=== PATIENT | male | born 1960 | race Caucasian/White ===

== ENCOUNTER → 2020-11-21 | Outpatient (CLI) | payer OTHER | LOC: SJCVCIMAG 08:14 | PROVIDERS: ATTEND Internal Medicine | DX: I73.9 Peripheral vascular disease, unspecified (principal); E04.1 Nontoxic single thyroid nodule; M79.604 Pain in right leg; M79.605 Pain in left leg; R09.89 Other specified symptoms and signs involving the circulatory and respiratory systems; Z79.899 Other long term (current) drug therapy ==

== ENCOUNTER → 2020-11-25 | Outpatient (CLI) | payer OTHER ==
[~2020-11-25] VITALS: Ht 175.3 cm; Wt 75.7 kg
[~2020-11-25] MED LIST: CENTRUM SILVER1 EAC7 PO; CRESTOR40 MG PO; FISH OIL 1,0001 EAC9 PO; OMEPRAZOLE40 MG PO
--- NOTE | 2020-11-25 10:00 | CATHLAB ---
[facility] [place], [place] [address] INVASIVE PROCEDURE REPORT Name: KAYLEEN PRINCE Room #: REG GREGORY Griffiths.#: [id number] Admission: 11/25/20 Attend Phys: Jeromy Alvarado MD, Discharge: Date of : 62 Report #: [id number] THIS REPORT FOR: cc: Po Jaime MD, Jonathan MD Lundgren, Craig H. MD [facility] ~ APPROVED REPORT Study performed: 11/25/2020 07:43:45 Patient Details Patient Status: Out-Patient Room #: The patient is a 60 year-old male Event Personnel Jeromy Alvarado Machine Pecan Picker, Kasandra Hutson RTR Monitor, Basilia Veliz RTR, Cade Veloz Dexter RN cinder pit crane operator Performed Art Access - R femoral artery* Left Heart Cath w/or w/o Coronaries [id number] [facility] [id number] Initial Mod Sed Same Phys/QHP Gr [id number] Mod Sed Same Phys/QHP Ea [id number] Hemostasis w/ Mynx Procedure Narrative The patient was brought electively to the Cardiac Catheterization Laboratory and was prepped and draped in a sterile manner. The Right Groin^ was infiltrated with 1% Lidocaine subcutaneous anesthesia. A PINNACLE 6FR Sheath #[id number] sheath was inserted into the RFA^. Coronary angiography was performed using coronary diagnostic catheters. The right coronary system was accessed and visualized with a JR4 catheter. The left coronary system was accessed and visualized with a JL4 catheter. The left ventricle was accessed and visualized with a PIGTAIL catheter. Left ventriculogram was performed in 30 degree projection. Closure device was deployed with a Fr MYNXGRIP 6/7F #[id number]. The patient tolerated the procedure well and there were no complications associated with the procedure. There was no hematoma. Intraoperative Conscious Sedation Sedation start time: 8:02 Case end Time: 8:35 Fentanyl 50 mcg Versed [address] [facility] [place] [address] INVASIVE PROCEDURE REPORT Name: KAYLEEN PRINCE [facility]: [id number] Admission: 11/25/20 Attend Phys: Jeromy Alvarado, Discharge: Date of : 62 Report #: [id number] Fluoro Time: 2.60 minutes Dose: DAP 5313.90 cGycm2 657 mGy Contrast Type and Amount: Omnipaque 110 ml Coronary Angiography The patient's coronary anatomy is right dominant. Diagnostic Cath Left Main Normal left main LAD Normal left anterior descending Diagonal 1 Large, single, angiographically normal diagonal branch Circumflex Circumflex is comprised of a single bifurcating marginal branch, angiographically normal Right Coronary Dominant right coronary, angiographically normal R PDA Normal posterior descending RPLV Normal posterior lateral branch Hemodynamics The aortic pressure is 146/70 mmHg with a mean of 108 mmHg. The left ventricular pressure is 152/-7 mmHg with a mean of mmHg. The left ventricular end diastolic pressure is 34 mmHg. Conclusion 1. Normal global and regional left ventricular systolic function. Ejection fraction 65% 2. Normal left main 3. Normal coronary vasculature. Right coronary dominant circulation. <ELECTRONICALLY SIGNED> By: Jeromy Alvarado MD, FACC 11/25/20 1000 1000 1000 Jeromy Alvarado MD, FACC /INF
== END | disposition home or self-care (01) ==
LOC: CATH 06:31
PROVIDERS: ATTEND Internal Medicine
DX: R94.39 Abnormal result of other cardiovascular function study (principal); R06.00 Dyspnea, unspecified; E78.00 Pure hypercholesterolemia, unspecified; Z79.899 Other long term (current) drug therapy